=== PATIENT | female | born 1955 | race Caucasian/White ===

== ENCOUNTER 2022-05-12 12:45 | Inpatient (IN) ==
[2022-05-12 13:49] LABS: Basophils % 0.3 % (0.0-0.8); Eosinophils % 0.1 % (0.00-10.9); Hematocrit 40.5 VOL% (35.7-47.0); Hemoglobin 12.7 GM/DL (12.0-16.0); Immature Granulocytes % 0.9 %; Immature Granulocytes Absolute 0.12 #; Lymphocytes # 2.1 10*3/uL (1.4-4.0); Lymphocytes % 15.2 % (21.3-54.2); Mean Corpuscular HGB Conc 31.4 GM/DL (32-36); Mean Platelet Volume 9.6 FL (9.6-12.0); Monocytes % 7.2 % (1.7-12.7); Neutrophils % 76.3 % (38.7-73.9); Platelet Count 292 T/CUMM (130-400); Red Blood Count 4.01 MC/CUMM (3.8-5.5); White Blood Count 13.8 T/CUMM (4-12)
[2022-05-12 13:57] LABS: Albumin 3.2 G/DL (3.4-5.0); Bilirubin,Total 0.4 MG/DL (0.20-1.00); Calcium 9.7 MG/DL (8.5-10.1); Potassium 3.6 MMOL/L (3.5-5.1)
[2022-05-12] MEDS ORDERED: PIPERACILLIN/TAZOBACTAM 3,375 MG in SODIUM CHLORIDE 0.9% 100 ML IV STA (15:14)
[2022-05-12] MEDS ORDERED: ALBUTEROL 2.5 MG/3 ML NEB RESP TX PRN (15:28)
[2022-05-12] MEDS ORDERED: MORPHINE 2 MG/1 ML SYRINGE IV PRN (15:28)
[2022-05-12] MEDS ORDERED: PROMETHAZINE 25 MG/1 ML VIAL IM PRN (15:28)
[2022-05-12] MEDS ORDERED: hydrALAZINE 20 MG/1 ML VIAL IV PRN (15:28)
[2022-05-12] MEDS: metroNIDAZOLE INJ 500 MG/100 ML PREMIX IV SCH (17:56)
[2022-05-12] MEDS: cefTRIAXone 1,000 MG in SODIUM CHLORIDE 0.9% 100 ML IV SCH (18:13)
[2022-05-12] MEDS: INSULIN LISPRO 100 UNIT/ML SUBCUT SCH (18:31)
[2022-05-12] MEDS: LACTATED RINGERS 1,000 ML IV SCH (19:01)
[2022-05-12] MEDS: ONDANSETRON 4 MG/2 ML VIAL IV PRN (22:37)
[2022-05-13] MEDS: metroNIDAZOLE INJ 500 MG/100 ML PREMIX IV SCH ×3 (01:12→16:58)
[2022-05-13] MEDS: LACTATED RINGERS 1,000 ML IV SCH ×2 (02:36→16:36)
[2022-05-13 05:49] LABS: Basophils # 0.1 10*3/uL (0.0-0.2); Basophils % 0.4 % (0.0-0.8); Eosinophils # 0.1 10*3/uL (0.0-0.87); Eosinophils % 0.8 % (0.00-10.9); Hematocrit 36.3 VOL% (35.7-47.0); Hemoglobin 11.3 GM/DL (12.0-16.0); Immature Granulocytes % 1.2 %; Immature Granulocytes Absolute 0.14 #; Lymphocytes # 2.9 10*3/uL (1.4-4.0); Lymphocytes % 23.8 % (21.3-54.2); Mean Corpuscular HGB Conc 31.1 GM/DL (32-36); Mean Corpuscular Volume 102.5 FL (87-102); Monocytes % 8.5 % (1.7-12.7); Neutrophils % 65.3 % (38.7-73.9); Platelet Count 286 T/CUMM (130-400); Red Blood Count 3.54 MC/CUMM (3.8-5.5); Red Cell Distribution Width 12.2 % (9.3-17.3)
[2022-05-13 06:30] LABS: Calcium 9.3 MG/DL (8.5-10.1); Potassium 3.7 MMOL/L (3.5-5.1); Risk Ratio 3.29; Thyroid Stimulating Hormone 5.25 uIU/ml (0.358-3.74); VLDL Cholesterol 34.6 MG/DL
[2022-05-13] MEDS: PANTOPRAZOLE 40 MG VIAL IV SCH (08:46)
[2022-05-13] MEDS: INSULIN LISPRO 100 UNIT/ML SUBCUT SCH ×3 (12:47→20:30)
[2022-05-13] MEDS: SODIUM CHLORIDE 0.45% 1,000 ML IV SCH (15:20)
[2022-05-13] MEDS: cefTRIAXone 1,000 MG in SODIUM CHLORIDE 0.9% 100 ML IV SCH (15:43)
[2022-05-13 16:20] LABS: Bilirubin,Urine Negative (Negative); Blood, Urine Negative (Negative); Glucose,Urine (UA) 150 mg/dL (Negative); Ketones,Urine Negative (Negative); Nitrite,Urine Negative (Negative); Protein,Urine Negative (Negative); RBC,Urine <1 /HPF (0-4); Squamous Epithelial Cell,Urine Occasional /HPF (0-10); Urine Appearance CLEAR (Clear); Urine Color Yellow (Yellow); Urine Urobilinogen < 2.0 eU/dL (<2.0)
[2022-05-14] MEDS: metroNIDAZOLE INJ 500 MG/100 ML PREMIX IV SCH ×3 (02:43→17:12)
[2022-05-14] MEDS: INSULIN LISPRO 100 UNIT/ML SUBCUT SCH ×4 (04:58→20:30)
[2022-05-14 06:06] LABS: Basophils # 0.1 10*3/uL (0.0-0.2); Basophils % 0.6 % (0.0-0.8); Eosinophils # 0.1 10*3/uL (0.0-0.87); Eosinophils % 1.6 % (0.00-10.9); Hematocrit 35.3 VOL% (35.7-47.0); Hemoglobin 10.8 GM/DL (12.0-16.0); Immature Granulocytes Absolute 0.08 #; Lymphocytes # 2.3 10*3/uL (1.4-4.0); Lymphocytes % 27.6 % (21.3-54.2); Mean Corpuscular HGB Conc 30.6 GM/DL (32-36); Mean Corpuscular Volume 102.9 FL (87-102); Mean Platelet Volume 9.3 FL (9.6-12.0); Monocytes # 0.7 10*3/uL (0.11-0.8); Monocytes % 8.9 % (1.7-12.7); Neutrophils % 60.3 % (38.7-73.9); Platelet Count 288 T/CUMM (130-400); Red Blood Count 3.43 MC/CUMM (3.8-5.5); Red Cell Distribution Width 12.4 % (9.3-17.3); White Blood Count 8.2 T/CUMM (4-12)
[2022-05-14 06:37] LABS: Calcium 9.6 MG/DL (8.5-10.1); Osmolality,Calculated 313.2 MOS/KG (273-304); Potassium 3.8 MMOL/L (3.5-5.1)
[2022-05-14] MEDS: PANTOPRAZOLE 40 MG VIAL IV SCH (09:11)
[2022-05-14 09:29] LABS: Calcium 9.7 MG/DL (8.5-10.1); Osmolality,Calculated 316.9 MOS/KG (273-304); Potassium 3.9 MMOL/L (3.5-5.1)
[2022-05-14] MEDS: DEXTROSE 5% 1,000 ML IV SCH (12:30)
[2022-05-14] MEDS: cefTRIAXone 1,000 MG in SODIUM CHLORIDE 0.9% 100 ML IV SCH (16:28)
[2022-05-14] MEDS: SODIUM CHLORIDE 0.45% 1,000 ML IV SCH (17:26)
[2022-05-15] MEDS: DEXTROSE 5% 1,000 ML IV SCH ×3 (01:24→17:30)
[2022-05-15] MEDS: metroNIDAZOLE INJ 500 MG/100 ML PREMIX IV SCH ×3 (02:13→17:25)
[2022-05-15] MEDS: INSULIN LISPRO 100 UNIT/ML SUBCUT SCH ×4 (02:51→18:27)
[2022-05-15 06:04] LABS: Basophils % 0.5 % (0.0-0.8); Eosinophils # 0.2 10*3/uL (0.0-0.87); Eosinophils % 2.1 % (0.00-10.9); Hematocrit 37.4 VOL% (35.7-47.0); Hemoglobin 11.4 GM/DL (12.0-16.0); Immature Granulocytes % 0.8 %; Immature Granulocytes Absolute 0.07 #; Lymphocytes # 2.2 10*3/uL (1.4-4.0); Lymphocytes % 26.3 % (21.3-54.2); Mean Corpuscular HGB Conc 30.5 GM/DL (32-36); Mean Corpuscular Volume 104.5 FL (87-102); Mean Platelet Volume 9.4 FL (9.6-12.0); Monocytes # 0.9 10*3/uL (0.11-0.8); Monocytes % 11.1 % (1.7-12.7); Neutrophils % 59.2 % (38.7-73.9); Platelet Count 318 T/CUMM (130-400); Red Blood Count 3.58 MC/CUMM (3.8-5.5); Red Cell Distribution Width 12.4 % (9.3-17.3); White Blood Count 8.3 T/CUMM (4-12)
[2022-05-15 06:30] LABS: Calcium 9.4 MG/DL (8.5-10.1); Osmolality,Calculated 316.3 MOS/KG (273-304); Potassium 3.5 MMOL/L (3.5-5.1)
[2022-05-15] MEDS: PANTOPRAZOLE 40 MG VIAL IV SCH (09:06)
[2022-05-15] MEDS: cefTRIAXone 1,000 MG in SODIUM CHLORIDE 0.9% 100 ML IV SCH (16:44)
[2022-05-16] MEDS: INSULIN LISPRO 100 UNIT/ML SUBCUT SCH ×4 (00:56→17:36)
[2022-05-16] MEDS: metroNIDAZOLE INJ 500 MG/100 ML PREMIX IV SCH ×2 (01:26→09:11)
[2022-05-16] MEDS: DEXTROSE 5% 1,000 ML IV SCH ×2 (03:34→14:11)
[2022-05-16 06:30] LABS: Basophils % 0.3 % (0.0-0.8); Eosinophils # 0.2 10*3/uL (0.0-0.87); Eosinophils % 1.8 % (0.00-10.9); Hematocrit 36.6 VOL% (35.7-47.0); Hemoglobin 11.5 GM/DL (12.0-16.0); Immature Granulocytes % 0.4 %; Immature Granulocytes Absolute 0.04 #; Lymphocytes # 2.3 10*3/uL (1.4-4.0); Mean Corpuscular HGB Conc 31.4 GM/DL (32-36); Mean Platelet Volume 9.5 FL (9.6-12.0); Monocytes # 1.1 10*3/uL (0.11-0.8); Monocytes % 11.7 % (1.7-12.7); Neutrophils % 61.8 % (38.7-73.9); Platelet Count 317 T/CUMM (130-400); Red Blood Count 3.52 MC/CUMM (3.8-5.5); Red Cell Distribution Width 12.3 % (9.3-17.3); White Blood Count 9.7 T/CUMM (4-12)
[2022-05-16 06:51] LABS: Calcium 9.2 MG/DL (8.5-10.1); Osmolality,Calculated 317.9 MOS/KG (273-304); Potassium 3.1 MMOL/L (3.5-5.1)
[2022-05-16 08:59] LABS: Calcium 9.2 MG/DL (8.5-10.1); Osmolality,Calculated 317.2 MOS/KG (273-304); Potassium 3.1 MMOL/L (3.5-5.1)
[2022-05-16] MEDS: PANTOPRAZOLE 40 MG VIAL IV SCH (09:11)
[2022-05-16] MEDS: POTASSIUM CHLORIDE 20 MEQ TABLET PO PRN ×2 (14:10→17:16)
[2022-05-16] MEDS: POLYETHYLENE GLYCOL POWDER 17 GM PACK PO SCH (14:10)
[2022-05-16] MEDS: ONDANSETRON 4 MG/2 ML VIAL IV PRN (15:19)
[2022-05-17] MEDS: INSULIN LISPRO 100 UNIT/ML SUBCUT SCH ×3 (00:22→12:11)
[2022-05-17 05:50] LABS: Calcium 9.6 MG/DL (8.5-10.1); Osmolality,Calculated 306.6 MOS/KG (273-304); Potassium 3.5 MMOL/L (3.5-5.1)
[2022-05-17] MEDS: DEXTROSE 5% 1,000 ML IV SCH (09:16)
[2022-05-17] MEDS: PANTOPRAZOLE 40 MG VIAL IV SCH (09:16)
[2022-05-17] MEDS: POTASSIUM CHLORIDE 20 MEQ TABLET PO PRN (09:16)
[2022-05-17] MEDS: POLYETHYLENE GLYCOL POWDER 17 GM PACK PO SCH (09:16)
[2022-05-17] MEDS: ONDANSETRON 4 MG/2 ML VIAL IV PRN (09:27)
[2022-05-17 11:57] VITALS: BP 156/88
== END 2022-05-17 17:31 | DRG 392 ==
LOC: N.ED 12:45 → N.3E 15:28 → SUATTDRO 15:28 → N.3E 16:57
PROVIDERS: ADMIT Emergency Medicine; ATTEND Internal Medicine